=== PATIENT | male | born 1965 | race Caucasian/White ===

== ENCOUNTER 2023-07-16 03:43 | Observation (INO) | payer OTHER ==
--- NOTE | 2023-07-16 04:22 | ER ---
Nurse's Notes 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 TOOK 1 ZOFRAN AT 10P BUT STILL jj7 CAN'T KEEP ANYTHING DOWN. PT STATES THEY FEEL DEHYDRATED. Coronavirus screen: At this time, the client does not indicate any symptoms associated with coronavirus-19. Ebola Screen: No symptoms or risks identified at this time. Initial Sepsis Screen: Does the patient meet any 2 criteria? HR > 90 bpm. Yes Does the patient have a suspected source of infection? No. Patient's initial sepsis screen is negative. Risk Assessment: Do you want to hurt yourself or someone else? Patient reports no desire to harm self or others. Onset of symptoms was July 15, 2023 at 22:00. 03:50 Method Of Arrival: Ambulatory j7 03:50 Acuity: MORENA 3 jj7 Triage Assessment: 03:50 General: Appears in no apparent distress. uncomfortable, Behavior is calm, cooperative, jj7 appropriate for age. GI: Reports nausea, vomiting. Historical: - Allergies: 04:01 No Known Allergies; jj7 - PMHx: 04:01 SOFT PALATE CANCER; Chronic obstructive lung disease; jj7 - PSHx: 04:01 None; jj7 - Immunization history:: Adult Immunizations up to date, Client reports receiving the 2nd dose of the Covid vaccine, Flu vaccine is up to date. - Social history:: Smoking status: Patient/guardian denies using tobacco, Stopped _ months ago 6. Screenin:03 Abuse screen: Denies threats or abuse. Nutritional screening: No deficits noted. jj7 Tuberculosis screening: No symptoms or risk factors identified. 04:10 [facility] ED Fall Risk Assessment (Adult) History of falling in the last 3 months, jw7 including since admission No falls in past 3 months (0 pts) Confusion or Disorientation No (0 pts) Intoxicated or Sedated No (0 pts) Impaired Gait No (0 pts) Mobility Assist Device Used No (0 pt) Altered Elimination No (0 pt) Score/Fall Risk Level 0 - 2 = Low Risk Oriented to surroundings, Maintained a safe environment, Educated pt \T\ family on fall prevention, incl call for assistance when getting out of bed. Assessment: 04:00 General: Appears in no apparent distress. uncomfortable, Behavior is calm, cooperative. jw7 Pain: Denies pain. Neuro: Level of Consciousness is awake, alert, obeys commands, Oriented to person, place, time, situation. Cardiovascular: Heart tones S1 S2 present Capillary refill < 3 seconds Clubbing of nail beds is absent JVD is absent Patient's skin is warm and dry. Respiratory: Airway is patent Trachea midline Respiratory effort is even, labored, Respiratory pattern is regular, symmetrical, tachypnea Breath sounds are clear bilaterally. GI: Abdomen is flat, non-distended, Bowel sounds present X 4 quads. Abd is soft X 4 quads Reports nausea, vomiting. : No deficits noted. No signs and/or symptoms were reported regarding the genitourinary system. EENT: No deficits noted. No signs and/or symptoms were reported regarding the EENT system. Derm: Skin is intact, is healthy with good turgor, Skin is dry, Skin is flushed, Skin temperature is warm. Musculoskeletal: Circulation, motion, and sensation intact. Range of motion: intact in all extremities. 05:00 Reassessment: Patient appears in no apparent distress at this time. No changes from jw7 previously documented assessment. Patient and/or family updated on plan of care and expected duration. Pain level reassessed. Patient is alert, oriented x 3, equal unlabored respirations, skin warm/dry/pink. 06:00 Reassessment: Patient appears in no apparent distress at this time. No changes from jw7 previously documented assessment. Patient and/or family updated on plan of care and expected duration. Pain level reassessed. Patient is alert, oriented x 3, equal unlabored respirations, skin warm/dry/pink. Vital Signs: 03:50 BP 101 / 75; Pulse 130; Resp 17; Temp 98.4; Pulse Ox 86% on R/A; Weight 79.38 kg; jj7 Height 6 ft. 3 in. ; 05:00 BP 102 / 70; Pulse 115; Resp 21 S; Pulse Ox 95% on 3 lpm NC; jw7 06:00 BP 106 / 72; Pulse 126; Resp 33 S; Pulse Ox 91% on 2 lpm NC; jw7 03:50 Body Mass Index 21.87 (79.38 kg, 190.5 cm) j7 ED Course: 03:46 Patient arrived in ED. jj6 03:50 Arm band placed on right wrist. Patient placed in an exam room, on a stretcher, on jj7 diathermy equipment repairer, on pulse oximetry. EKG completed in triage. Results shown to MD. 03:52 Jef Smith MD is Attending Physician. [facility] 04:00 Triage completed. j7 04:00 Provided Education on: Use of Call Light. [facility] 04:03 Patient has correct armband on for positive identification. Bed in low position. Call j7 light in reach. Side rails up X 1. Adult w/ patient. Client placed on continuous cardiac and pulse oximetry monitoring. NIBP monitoring applied. cardiac monitor on. Pulse ox on. 04:03 Oxygen administration via nasal cannula \T\ 2L/min. jj7 04:17 John Page MD is Hospitalizing Provider. [facility] 04:22 XRAY Chest (1 view) In Process Unspecified. EDMS 04:28 Radha Allen, RN is Primary Nurse. jw7 04:40 Missed attempt(s): 20 gauge Bleeding controlled, band aid applied, catheter tip intact. oe 04:45 Missed attempt(s): 22 gauge Bleeding controlled, band aid applied, catheter tip intact. oe 04:50 Inserted saline lock: 20 gauge in right antecubital area, using aseptic technique. jj7 Blood collected. 05:01 Lipase Sent. jj7 05:01 Lactate w/ 2H reflex if indic. Sent. jj7 05:01 Blood Culture Adult (2) Sent. jj7 05:01 Basic Metabolic Panel Sent. jj7 05:01 CBC with Diff Sent. jj7 05:01 LFT's Sent. jj7 05:01 Magnesium Sent. jj7 05:01 NT PRO-BNP Sent. jj7 05:02 PT-INR Sent. jj7 05:02 Troponin HS Sent. jj7 06:19 No provider procedures requiring assistance completed. Patient admitted, IV remains in jw7 place. Administered Medications: 05:13 Drug: NS 0.9% IV 1000 ml IV at 1 bolus Per protocol; 1000 mL bolus Route: IV; Rate: 1 jw7 bolus; Site: right antecubital; 05:13 Drug: NS 0.9% IV 1000 ml IV at 1 bolus Per protocol; 1000 mL bolus Route: IV; Rate: 1 jw7 bolus; Site: right antecubital; 05:13 Drug: Piperacillin-Tazobactam IVPB 3.375 grams IVPB once over 60 mins; (mix in NS 100 jw7 mL) Route: IVPB; Infused Over: 60 mins; Site: right antecubital; 06:23 Follow up: Response: No adverse reaction; IV Status: Completed infusion; IV Intake: jw7 100ml 05:13 Drug: Ondansetron IVP 4 mg IVP once; over 2 minutes Route: IVP; Site: right antecubital;jw7 06:24 Follow up: Response: No adverse reaction; Marked relief of symptoms jw7 05:13 Drug: MethylPrednisoLONE IVP 125 mg IVP once Route: IVP; Site: right antecubital; jw7 06:24 Follow up: Response: No adverse reaction jw7 05:14 Drug: Levalbuterol Inhalation 2.5 mg Inhalation once Route: Inhalation; jw7 06:24 Follow up: Response: No adverse reaction; Marked relief of symptoms jw7 05:14 Drug: Ipratropium Inhalation Aerosol 0.5 mg Inhalation once Route: Inhalation; jw7 06:24 Follow up: Response: No adverse reaction; Marked relief of symptoms jw7 05:42 Drug: Famotidine IVP 20 mg IVP once; dilute with 10 mL 0.9% NaCl; give over 2 minutes jw7 Route: IVP; Site: right antecubital; 06:25 Follow up: Response: No adverse reaction; Marked relief of symptoms jw7 05:42 Drug: Levalbuterol Inhalation 1.25 mg Inhalation once Route: Inhalation; jw7 06:25 Follow up: Response: No adverse reaction; Marked relief of symptoms jw7 07:36 Drug: D5-1/2 NS IV 1000 ml IV at 150 ml/hr continuous Route: IV; Rate: 150 ml/hr; Site: kc6 right antecubital; 07:36 Drug: Magnesium Sulfate IVPB 1 grams IVPB once over 1 hrs Route: IVPB; Infused Over: 1 kc6 hrs; Site: right antecubital; Medication: 04:03 VIS not applicable for this client. jj7 Intake: 06:23 IV: 100ml; Total: 100ml. jw7 Outcome: 04:21 Decision to Hospitalize by Provider. rosy 06:19 Admitted to ER Hold. Please see [facility] for further documentation. jw7 06:19 Condition: stable 06:19 Instructed on the need for admit, Demonstrated understanding of instructions, 16:08 Patient left the ED. kc6 Signatures: Dispatcher [employer] EDMS Jef Smith MD MD cha Espinosa, Orlando oe Jeffries, Jennifer jj6 Radha Allen RN RN jw7 Amy Singh RN RN kc6 Jennifer Byrnes RN RN jj7
--- NOTE | 2023-07-16 04:22 | EDPHYS ---
Physician Documentation [facility] Name: Francisco Cardona Age: 58 yrs Sex: Male : 1965 Arrival Date: 07/16/2023 Time: 03:43 Bed 15 Private MD: ED Physician Jef Smith HPI: 07/15 04:10 This 58 yrs old Male presents to ER via Ambulatory with complaints of rosy Nausea/Vomiting, General Weakness, PT CURRENTLY ON CHEMO, POSSIBLE DEHYDRATION. 04:10 The patient presents to the emergency department with nausea, vomiting. Onset: The rosy symptoms/episode began/occurred 2 day(s) ago. Possible causes: unknown, chemo/ xrt. The symptoms are aggravated by food , The symptoms are alleviated by prescription meds. Associated signs and symptoms: Pertinent positives: nausea, vomiting. Severity of symptoms: At their worst the symptoms were moderate in the emergency department the symptoms are unchanged. The patient has experienced similar episodes in the past, several times. Historical: - Allergies: 04:01 No Known Allergies; jj7 - PMHx: 04:01 SOFT PALATE CANCER; Chronic obstructive lung disease; jj7 - PSHx: 04:01 None; jj7 - Immunization history:: Adult Immunizations up to date, Client reports receiving the 2nd dose of the Covid vaccine, Flu vaccine is up to date. - Social history:: Smoking status: Patient/guardian denies using tobacco, Stopped _ months ago 6. ROS: 04:12 Constitutional: Negative for fever, chills, and weight loss, Eyes: Negative for injury, rosy pain, redness, and discharge, ENT: Negative for injury, pain, and discharge, Neck: Negative for injury, pain, and swelling, Back: Negative for injury and pain, : Negative for injury, bleeding, discharge, and swelling, MS/Extremity: Negative for injury and deformity, Skin: Negative for injury, rash, and discoloration, Neuro: Negative for headache, weakness, numbness, tingling, and seizure, 04:12 Cardiovascular: Positive for palpitations, Negative for chest pain, 04:12 Respiratory: Positive for cough, shortness of breath, 04:12 Abdomen/GI: Negative for abdominal pain, nausea and vomiting, Exam: 04:12 Constitutional: This is a well developed, well nourished patient who is awake, alert, rosy and in no acute distress. Head/Face: Normocephalic, atraumatic. Eyes: Pupils equal round and reactive to light, extra-ocular motions intact. Lids and lashes normal. Conjunctiva and sclera are non-icteric and not injected. Cornea within normal limits. Periorbital areas with no swelling, redness, or edema. ENT: Nares patent. No nasal discharge, no septal abnormalities noted. Tympanic membranes are normal and external auditory canals are clear. Oropharynx with no redness, swelling, or masses, exudates, or evidence of obstruction, uvula midline. Mucous membranes moist. Neck: Trachea midline, no thyromegaly or masses palpated, and no cervical lymphadenopathy. Supple, full range of motion without nuchal rigidity, or vertebral point tenderness. No Meningismus. Chest/axilla: Normal chest wall appearance and motion. Nontender with no deformity. No lesions are appreciated. Abdomen/GI: Soft, non-tender, with normal bowel sounds. No distension or tympany. No guarding or rebound. No evidence of tenderness throughout. Back: No spinal tenderness. No costovertebral tenderness. Full range of motion. Male : Normal genitalia with no discharge or lesions. Skin: Warm, dry with normal turgor. Normal color with no rashes, no lesions, and no evidence of cellulitis. MS/ Extremity: Pulses equal, no cyanosis. Neurovascular intact. Full, normal range of motion. Neuro: Awake and alert, GCS 15, oriented to person, place, time, and situation. Cranial nerves II-XII grossly intact. Motor strength 5/5 in all extremities. Sensory grossly intact. Cerebellar exam normal. Normal gait. Psych: Awake, alert, with orientation to person, place and time. Behavior, mood, and affect are within normal limits. 04:12 Cardiovascular: Rate: tachycardic, actual rate is 122 bpm, Rhythm: regular, Pulses: Pulses are 4+ in bilateral radial, brachial, femoral, popliteal, posterior tibial and and dorsalis pedis arteries.. Heart sounds: normal, Edema: is not appreciated, JVD: is not appreciated, 04:12 ECG was reviewed by the Attending Physician. Vital Signs: 03:50 BP 101 / 75; Pulse 130; Resp 17; Temp 98.4; Pulse Ox 86% on R/A; Weight 79.38 kg; jj7 Height 6 ft. 3 in. ; 05:00 BP 102 / 70; Pulse 115; Resp 21 S; Pulse Ox 95% on 3 lpm NC; [facility] 06:00 BP 106 / 72; Pulse 126; Resp 33 S; Pulse Ox 91% on 2 lpm NC; [facility] 03:50 Body Mass Index 21.87 (79.38 kg, 190.5 cm) [facility] MDM: 03:52 Patient medically screened. rosy 05:55 Antibiotic administration: zosyn, rocephin. Differential diagnosis: Anxiety Reaction rosy asthma, Bronchitis CHF exacerbation, Chronic Obstructive Pulmonary Disease Nonspecific abd pain, gastritis, pancreatitis, appendicitis, viral gastroenteritis, gastroenteritis, pneumonia, Pneumothorax Psychogenic pulmonary edema, Pulmonary Embolism. Immunization status: Influenza vaccine:. Data reviewed: vital signs, nurses notes, lab test result(s), EKG, radiologic studies, plain films. Consideration of Admission/Observation Patient was admitted/placed on observation. Escalation of care including admission/observation considered. I considered the following discharge prescriptions or medication management in the emergency department Medications were administered in the Emergency Department. See MAR. Independent interpretation of the following test(s) in the Emergency Department EKG: See my EKG interpretation above. Test considered but Not performed: CT: no ct chest. Historians other than the Patient: Family Member: family well informed. Care significantly affected by the following chronic conditions: Chronic Obstructive Pulmonary Disease, Cancer. Counseling: I had a detailed discussion with the patient and/or guardian regarding the historical points, exam findings, and any diagnostic results supporting the discharge/admit diagnosis, the presence of at least one elevated blood pressure reading (>120/80) during this emergency department visit, lab results, radiology results, the need for further work-up and treatment in the hospital. 07/15 04:08 Order name: Basic Metabolic Panel; Complete Time: 05:39 rosy 07/15 04:08 Order name: CBC with Diff rosy 07/15 04:08 Order name: LFT's; Complete Time: 05:39 rosy 07/15 04:08 Order name: Magnesium; Complete Time: 05:39 rosy 07/15 04:08 Order name: NT PRO-BNP; Complete Time: 05:39 rosy 07/15 04:08 Order name: PT-INR; Complete Time: 05:25 rosy 07/15 04:08 Order name: Troponin HS; Complete Time: 05:39 [facility] 07/15 04:08 Order name: Blood Culture Adult (2) [facility] 07/15 04:08 Order name: Lactate w/ 2H reflex if indic.; Complete Time: 05:55 [facility] 07/15 04:08 Order name: Urinalysis w/ reflexes [facility] 07/15 04:08 Order name: Lipase; Complete Time: 05:39 [facility] 07/15 05:23 Order name: Urinalysis w/ reflexes [facility] 07/15 08:27 Order name: CBC Smear Scan [facility] 07/15 15:54 Order name: Lactate Sepsis 2 HR Follow-up [facility] 07/15 04:08 Order name: XRAY Chest (1 view) [facility] 07/15 04:08 Order name: EKG; Complete Time: 04:09 [facility] 07/15 04:08 Order name: Cardiac monitoring; Complete Time: 04:09 [facility] 07/15 04:08 Order name: EKG - Nurse/Tech; Complete Time: 04:09 [facility] 07/15 04:08 Order name: IV Saline Lock; Complete Time: 05:01 [facility] 07/15 04:08 Order name: Labs collected and sent; Complete Time: 05:01 [facility] 07/15 04:08 Order name: O2 Per Protocol; Complete Time: 04:40 [facility] 07/15 04:08 Order name: O2 Sat Monitoring; Complete Time: 04:40 [facility] EC:12 Rate is 122 beats/min. Rhythm is regular. QRS Calder is Normal. DC interval is normal. [facility] QRS interval is normal. QT interval is normal. No Q waves. T waves are Normal. No ST changes noted. Clinical impression: Sinus tachycardia and No evidence of ischemia. Interpreted by me. Reviewed by me. Administered Medications: 05:13 Drug: NS 0.9% IV 1000 ml IV at 1 bolus Per protocol; 1000 mL bolus Route: IV; Rate: 1 jw7 bolus; Site: right antecubital; 05:13 Drug: NS 0.9% IV 1000 ml IV at 1 bolus Per protocol; 1000 mL bolus Route: IV; Rate: 1 jw7 bolus; Site: right antecubital; 05:13 Drug: Piperacillin-Tazobactam IVPB 3.375 grams IVPB once over 60 mins; (mix in NS 100 jw7 mL) Route: IVPB; Infused Over: 60 mins; Site: right antecubital; 06:23 Follow up: Response: No adverse reaction; IV Status: Completed infusion; IV Intake: jw7 100ml 05:13 Drug: Ondansetron IVP 4 mg IVP once; over 2 minutes Route: IVP; Site: right antecubital;jw7 06:24 Follow up: Response: No adverse reaction; Marked relief of symptoms jw7 05:13 Drug: MethylPrednisoLONE IVP 125 mg IVP once Route: IVP; Site: right antecubital; jw7 06:24 Follow up: Response: No adverse reaction jw7 05:14 Drug: Levalbuterol Inhalation 2.5 mg Inhalation once Route: Inhalation; jw7 06:24 Follow up: Response: No adverse reaction; Marked relief of symptoms jw7 05:14 Drug: Ipratropium Inhalation Aerosol 0.5 mg Inhalation once Route: Inhalation; jw7 06:24 Follow up: Response: No adverse reaction; Marked relief of symptoms jw7 05:42 Drug: Famotidine IVP 20 mg IVP once; dilute with 10 mL 0.9% NaCl; give over 2 minutes jw7 Route: IVP; Site: right antecubital; 06:25 Follow up: Response: No adverse reaction; Marked relief of symptoms jw7 05:42 Drug: Levalbuterol Inhalation 1.25 mg Inhalation once Route: Inhalation; jw7 06:25 Follow up: Response: No adverse reaction; Marked relief of symptoms jw7 07:36 Drug: D5-1/2 NS IV 1000 ml IV at 150 ml/hr continuous Route: IV; Rate: 150 ml/hr; Site: kc6 right antecubital; 07:36 Drug: Magnesium Sulfate IVPB 1 grams IVPB once over 1 hrs Route: IVPB; Infused Over: 1 kc6 hrs; Site: right antecubital; Disposition Summary: 07/16/23 04:21 Hospitalization Ordered Notes: Hospitalization Status: Observation rosy Provider: John Page cha Condition: Stable rosy Problem: new rosy Symptoms: have improved rosy Bed/Room Type: Standard rosy Location: Telemetry/MedSurg (observation)(07/16/23 15:01) janis Room Assignment: 426(07/16/23 15:01) janis Diagnosis - COPD/ Chronic obstructive pulmonary disease with (acute) exacerbation rosy - Dehydration rosy - Vomiting rosy - Hypoxemia rosy - 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, face and neck - on rosy chem/xrt - Neutropenia, unspecified - anc 1530 rosy - Anemia, unspecified rosy Forms: - Medication Reconciliation Form rosy - SBAR form rosy - Leadership Thank You Letter rosy Signatures: Dispatcher [employer] Jef Waite MD MD cha Garcia, Cindy RN RN Krishna Cedeño RN RN ja1 Radha Allen RN RN jw7 Amy Singh RN RN kc6 Jennifer Byrnes RN RN jj7 Corrections: (The following items were deleted from the chart) 05:41 04:21 Telemetry/MedSurg (observation) [facility] cg 05:41 04:21 rosy cg 15:01 05:41 [facility] ER HOLD [facility] 15:01 05:41 ERHOLD- [facility]
[2023-07-16] MEDS ORDERED: ONDANSETRON 4 MG/2 ML VIAL ONE (04:48)
[2023-07-16] MEDS ORDERED: LEVALBUTEROL 1.25 MG/3 ML NEB ONE ×2 (04:48→05:31)
[2023-07-16] MEDS ORDERED: NA CHLORIDE 0.9% 100 ML ONE ×2 (04:48→08:35)
[2023-07-16] MEDS ORDERED: IPRATROPIUM BROM 0.5MG/2.5ML ONE (04:48)
[2023-07-16] MEDS ORDERED: METHYLPREDNISOLONE 125 MG INJ ONE (04:48)
[2023-07-16] MEDS ORDERED: PIPERACIL/TAZO 3.375 GM VIAL IV ONE (04:48)
[2023-07-16] MEDS ORDERED: NA CHLORIDE 0.9% 2,000 ML ONE (04:49)
[2023-07-16] MEDS ORDERED: ACETAMINOPHEN 500 MG TAB PO PRN (05:17)
[2023-07-16] MEDS ORDERED: ONDANSETRON 4 MG/2 ML VIAL IV PRN (05:17)
[2023-07-16 05:18] LABS: Absolute Lymphocytes (CBC) 0.1 K/uL (0.7-4.9); Absolute Monocytes 0.1 K/uL (0.1-1.3); Absolute Neutrophil 1.6 K/uL (1.8-8.0); Basophils % 0.1 % (0-1.3); Eosinophils % 0.1 % (0-4.4); Hemoglobin 12.1 g/dL (13.6-17.9); MCH 30.8 pg (27.0-35.0); MCHC 34.5 g/dL (32.0-36.0); MCV 89.1 fL (80-100); MPV 7.1 fL (7.6-11.3); Monocytes % 5.5 % (3.3-12.3); Neutrophils % 90.3 % (41.7-73.7); Nucleated Red Blood Cells % 0.3 % (0-0); Platelets 191 thou/uL (152-406); RBC Red Blood Cell Count 3.93 M/uL (4.33-5.43)
[2023-07-16 05:20] LABS: PT Prothrombin Time 13.6 SECONDS (9.5-12.5); Protime INR 1.24
[2023-07-16] MEDS ORDERED: ALBUTEROL 2.5 MG/3 ML NEB SOL NEB PRN (05:22)
[2023-07-16] MEDS ORDERED: IPRATROPIUM BROM 0.5MG/2.5ML NEB PRN (05:23)
--- NOTE | 2023-07-16 05:23 | P.HP ---
Certification for Inpatient Patient admitted to: Inpatient With expected LOS: >2 Midnights Practitioner: I am a practitioner with admitting privileges, knowledge of patient current condition, hospital course, and medical plan of care. Services: Services provided to patient in accordance with Admission requirements found in Title 42 Section 412.3 of the Code of Federal Regulations Patient History Date of Service: 07/16/23 Reason for admission: Pneumonia, sepsis. 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 He was found to have significant issues with neutropenia, elevated lactic acid and concerns for COPD exacerbation. He was given breathing treatment, IV fluid for sepsis management and IV antibiotic therapy and was admitted for inpatient care. Allergies No Known Allergies Allergy (Verified 06/03/23 09:45) Review of Systems General: Weakness, Malaise Eyes: Unremarkable ENT: Unremarkable Respiratory: Shortness of Breath, As per HPI Cardiovascular: As per HPI Gastrointestinal: Unremarkable Genitourinary: Unremarkable Musculoskeletal: Unremarkable Integumentary: Unremarkable Neurological: Unremarkable Lymphatics: Unremarkable Physical Examination - Physical Exam General: Alert, Oriented x3 HEENT: Atraumatic Neck: Supple Respiratory: Diminished Cardiovascular: Regular rate/rhythm, Normal S1 S2 Gastrointestinal: Soft and benign Musculoskeletal: No swelling Neurological: Normal speech, Normal strength at 5/5 x4 extr - Studies Laboratory Data (last 24 hrs) 07/16/23 04:50 PT 13.6 H INR 1.24 Assessment and Plan - Plan Sepsis: Present on admission and deemed secondary to underlying pneumonia issues. Lactic acid is elevated at 3.5. IV fluid given and antibiotic started. Will adjust antibiotic therapy based on cultures Continue to monitor lactic acid reflexively. Neutropenia: Patient is on chemotherapy and x-ray therapy. Will start Neupogen for neutropenia and monitor daily white cell count. COPD exacerbation: Deemed infectious as per exacerbation secondary to pneumonia. We will continue steroid therapy and breathing treatment. History of head and neck cancer: We will continue therapy as per oncologist. Hyponatremia: Sodium is slightly low at 131. Will continue IV fluid for repletion and follow levels on daily labs. Prophylaxis: Lovenox for DVT prophylaxis. CODE STATUS: Full code. Disposition: We will treat his multiple medical issues and he will be discharged when deemed clinically stable. - Advance Directives Does patient have a Living Will: No Does patient have a Durable POA for Healthcare: No
[2023-07-16] MEDS ORDERED: D5 0.45 NS 1,000 ML IV ONE (05:31)
[2023-07-16] MEDS ORDERED: FAMOTIDINE 20 MG/2 ML VIAL IV ONE (05:31)
[2023-07-16 05:35] LABS: Albumin 2.7 g/dL (3.4-5.0); Albumin/Globulin Ratio 0.6 (1.1-1.8); Anion Gap 13.3 mEq/L (5.0-15.0); Bilirubin Direct 0.3 mg/dL (0-0.2); Bilirubin Indirect, Calculated 0.6 mg/dL (0.2-0.8); Bilirubin Total 0.9 mg/dL (0.2-1.0); Globulin 4.8 g/dL (2.3-3.5); Magnesium 1.7 mg/dL (1.6-2.4); Potassium 4.3 mEq/L (3.5-5.1); Protein, Total 7.5 g/dL (6.4-8.2); Troponin High Sensitivity 7.6 pg/mL (<58.9)
[2023-07-16] MEDS: METHYLPREDNISOLONE 40 MG INJ IV SCH (06:00)
[2023-07-16 06:31] VITALS: BMI 21.9
[2023-07-16 06:59] LABS: Specific Gravity 1.026 (1.005-1.030); Sqamous Epithelial None Seen /HPF (None Seen); Urine Bacteria None Seen /HPF (<20); Urine Bilirubin NEGATIVE (Negative); Urine Blood Negative (Negative); Urine Clarity Turbid (Clear); Urine Color Light-Orange (Yellow); Urine Culture Reflex Order NOT NEEDED; Urine Glucose NEGATIVE (Negative); Urine Ketones NEGATIVE (Negative); Urine Microscopic Reflex YN ORDER UMIC; Urine Nitrite NEGATIVE (Negative); Urine Protein 1+ (Negative); Urine RBC <5 /HPF (None Seen); Urine Urobilinogen Normal (Normal); Urine WBC <5 /HPF (<5); Urine pH 5.5 (5.0-7.0)
[2023-07-16] MEDS ORDERED: MAGNESIUM SULFATE 1 gm IVPB 1 GM/100 ML BAG IV ONE (07:20)
[2023-07-16] MEDS: Levofloxacin 750mg IV 750 MG/150 ML BAG IV SCH (08:00)
[2023-07-16 08:26] LABS: Blood Morphology Comment NOT SEEN (NOT SEEN); Platelet Estimate ADEQ; Toxic Granulation PRESENT; White Blood Cell Scan OK (OK)
[2023-07-16] MEDS ORDERED: Levofloxacin 750mg IV 750 MG/150 ML BAG IV ONE (08:35)
[2023-07-16] MEDS ORDERED: ENOXAPARIN 40 MG/0.4 ML SQ ONE (08:35)
[2023-07-16] MEDS ORDERED: CEFEPIME 1 GM/VIAL ONE (08:36)
[2023-07-16] MEDS: CEFEPIME 1 GM in NA CHLORIDE 0.9% 100 ML IV SCH (08:50)
[2023-07-16] MEDS: ENOXAPARIN 40 MG/0.4 ML SQ SCH (08:50)
[2023-07-16] MEDS: TBO-FILGRASTIM 480 MCG/0.8 ML SYR SQ SCH (12:54)
--- NOTE | 2023-07-16 14:06 | EKG ---
Test Date: 2023-07-16 Test Time: 03:52:23 Care Analyst: JOVITA MEASUREMENT RESULTS: Intervals: Rate: 122 DC: 130 QRSD: 106 QT: 314 QTc: 447 [place]: P: 79 DC: 130 QRS: 82 T: 83 INTERPRETIVE STATEMENTS: Sinus tachycardia Right atrial enlargement Borderline ECG No previous ECG available for comparison Electronically Signed On 07-16-23 14:04:45 CDT by Dionicio Quintanilla
--- NOTE | 2023-07-16 17:21 | RAD REPORT ---
EXAM DESCRIPTION: RAD - Chest Single View - 07/16/2023 4:20 am CLINICAL HISTORY: The patient is 58 years old and is Male; COUGH TECHNIQUE: Frontal view of the chest. COMPARISON: No relevant prior studies available. FINDINGS: Lungs: Unremarkable. No consolidation. Pleural space: Unremarkable. No pneumothorax. Heart: Unremarkable. Mediastinum: Unremarkable. Normal mediastinal contour. Bones/joints: No acute findings. IMPRESSION: No acute findings in the chest. Electronically signed by: Erik Barber MD 07/16/2023 05:05 AM CDT Due to temporary technical issues with the PACS/Fluency reporting system, reports are being signed by the in house radiologists without review as a courtesy to insure prompt reporting. The interpreting radiologist is fully responsible for the content of the report.
[2023-07-16] MEDS: HYDROCODONE/APAP 10/325 TAB PO PRN (17:58)
--- NOTE | 2023-07-16 20:34 | P.PN ---
Date of Service: 07/16/23 Pt seen and examined. Pt is 58-year-old male with past medical history of COPD and oropharyngeal cancer s/p chemoradiation therapy who presented with SOB, nausea, vomiting and weakness. On admission, lab studies showed neutropenia, elevated lactic acid, dehydration, and concerns for COPD exacerbation. He was given breathing treatment, IV fluid for sepsis management and IV antibiotic therapy and admitted for inpatient care. A/P: Severe sepsis: Likely due to aspiration pneumonia due to vomiting and oropharyngeal cancer. Lactate is 3.5. Will continue Iv cefepime and IVF. trend lactate. Leukopenia: WBC is 1.7, Likely due to chemoradiation. Will continue cefepime and trend WBC. COPD exacerbation: Continue steroid therapy, prn oxygen and duoneb. History of head and neck cancer: We will continue therapy as per oncologist. Elevated BNP: BNP 896. Will check Echo. Hyponatremia: Na is 131. Will continue IV fluid for repletion and follow levels on daily labs. DVT prophylaxis: lovenox CODE STATUS: Full code. Disposition: Pending hospital course
[2023-07-17] MEDS: NA CHLORIDE 0.9% 1,000 ML IV SCH ×2 (08:30→10:00)
--- NOTE | 2023-07-17 09:48 | P.PN ---
Subjective Date of Service: 07/17/23 Chief Complaint: Pneumonia, sepsis. Pt is resting comfortably in bed. He complains of drymouth and dysphagia. Waiting for Speech therapist to evaluate him. No other complaints. Review of Systems General: Unremarkable Eyes: Unremarkable ENT: Other (dry mouth and dysphagia) Respiratory: Unremarkable Cardiovascular: Unremarkable Gastrointestinal: Unremarkable Genitourinary: Unremarkable Musculoskeletal: Unremarkable Integumentary: Unremarkable Neurological: Unremarkable Lymphatics: Unremarkable Physical Examination - Vital Signs Temperature: 97.2 F Blood Pressure: 119/73 Pulse: 79 Respirations: 19 Pulse Ox (%): 95 - Physical Exam General: Alert, In no apparent distress, Oriented x3 HEENT: Atraumatic, Normocephalic, PERRLA Neck: Supple, 2+ carotid pulse no bruit Respiratory: Clear to auscultation bilaterally, Normal air movement Cardiovascular: No edema, Normal pulses, Regular rate/rhythm, Normal S1 S2 Capillary refill: <2 Seconds Gastrointestinal: Normal bowel sounds, Soft and benign, Non-distended Musculoskeletal: No clubbing, No swelling Integumentary: No rashes, No breakdown, No significant lesion Neurological: Normal gait, Normal speech, Normal strength at 5/5 x4 extr Lymphatics: No axilla or inguinal lymphadenopathy Assessment And Plan - Plan Severe sepsis: Likely due to aspiration pneumonia due to vomiting and oropharyngeal cancer. Lactate is 1.5 <- 3.5. Will continue iv cefepime and IVF. trend lactate. Will f/u CXR Leukopenia: WBC is 1.7, Likely due to chemoradiation. Will continue cefepime, filgrastim and trend WBC. COPD exacerbation: Continue steroid therapy, cefepime, prn oxygen and duoneb. History of head and neck cancer: We will continue therapy as per oncologist. Elevated BNP: BNP 896. Will check Echo. Hyponatremia: Na is 131. Will continue IV fluid for repletion and follow levels on daily labs. DVT prophylaxis: lovenox Code: Full code. Disposition: Pending hospital course
[2023-07-17 10:28] LABS: Absolute Neutrophil 6.5 K/uL (1.8-8.0); Basophils % 0.4 % (0-1.3); Hematocrit 29.7 % (39.6-49.0); Hemoglobin 10.4 g/dL (13.6-17.9); Lymphocytes % 0.7 % (15.3-44.8); MCH 30.9 pg (27.0-35.0); MCHC 34.8 g/dL (32.0-36.0); MCV 88.7 fL (80-100); MPV 6.8 fL (7.6-11.3); Monocytes % 0.3 % (3.3-12.3); Neutrophils % 98.6 % (41.7-73.7); Platelets 151 thou/uL (152-406); RBC Red Blood Cell Count 3.35 M/uL (4.33-5.43); Red Cell Distribution Width 15.4 % (12.1-15.2)
[2023-07-17 10:40] LABS: Anion Gap 8.8 mEq/L (5.0-15.0); Potassium 3.8 mEq/L (3.5-5.1)
[2023-07-18 02:45] LABS: Specific Gravity 1.017 (1.005-1.030); Urine Bilirubin NEGATIVE (Negative); Urine Blood Negative (Negative); Urine Clarity Clear (Clear); Urine Color Light-Yellow (Yellow); Urine Glucose NEGATIVE (Negative); Urine Ketones NEGATIVE (Negative); Urine Microscopic Reflex YN NO UMIC; Urine Nitrite NEGATIVE (Negative); Urine Protein NEGATIVE (Negative); Urine Urobilinogen Normal (Normal); Urine pH 5.5 (5.0-7.0)
[2023-07-18] MEDS: DOCUSATE NA 100 MG CAP PO SCH (08:14)
[2023-07-18 10:59] VITALS: O2SAT 90
--- NOTE | 2023-07-18 11:52 | P.DS ---
Admission Date: 07/16/23 Discharge Date: 07/18/23 Disposition: ROUTINE DISCHARGE Discharge Condition: GOOD Reason for Admission: Pneumonia, sepsis. Brief History of Present Illness: 58-year-old female patient with medical history significant for COPD, history of oropharyngeal cancer with subsequent chemotherapy and x-ray therapy who came to the ED with complaint of worsening shortness of breath. He was found to have significant issues with neutropenia, elevated lactic acid and concerns for COPD exacerbation. He was given breathing treatment, IV fluid for sepsis management and IV antibiotic therapy and was admitted for inpatient care. Hospital Course: Pt is a 58-year-old female with past medical history of COPD and oropharyngeal cancer s/p chemoradiation who presented with worsening shortness of breath. He was found to have leukopenia, elevated lactic acid and concerns for COPD exacerbation. Pt complained of difficulty swallowing. We kept him NPO and consulted Speech therapist for evaluation. FUNDS TRANSFER CLERK recommended full liquid diet. Pt will follo wup with GI in clinic. Pt later tolerated regular food. The leukopenia resolved with iv filgrastrim and cefepime. We later discharged him with cefdinir 300mg po BID for 5 days. Lactic acidosis resolved with gentle hydration. We continued steroid therapy, cefepime, prn oxygen and duoneb for acute COPD exacerbation. Pt had elevated BNP and we ordered Echo but pt declined echocardiogram. Hyponatremia due to hypovolemia improved with gentle hydration. We continued home med for other chronic medical problems. Pt was in NAD prior to discharge. Vital Signs/Physical Exam: Temp Pulse Resp BP Pulse Ox 97.8 F 80 18 138/82 92 07/18/23 08:00 07/18/23 08:00 07/18/23 10:53 07/18/23 08:00 07/18/23 10:53 Laboratory Data at Discharge: WBC 6.60 thou/uL (4.3-10.9) 07/17/23 10:16 Hgb 10.4 g/dL (13.6-17.9) L 07/17/23 10:16 Hct 29.7 % (39.6-49.0) L 07/17/23 10:16 Plt Count 151 thou/uL (152-406) L 07/17/23 10:16 PT 13.6 SECONDS (9.5-12.5) H 07/16/23 04:50 INR 1.24 07/16/23 04:50 Sodium 132 mEq/L (136-145) L 07/17/23 10:16 Potassium 3.8 mEq/L (3.5-5.1) 07/17/23 10:16 BUN 21 mg/dL (7-18) H 07/17/23 10:16 Creatinine 0.63 mg/dL (0.70-1.30) L 07/17/23 10:16 Glucose 134 mg/dL (74-106) H 07/17/23 10:16 Magnesium 1.7 mg/dL (1.6-2.4) 07/16/23 04:50 Total Bilirubin 0.9 mg/dL (0.2-1.0) 07/16/23 04:50 AST 11 U/L (15-37) L 07/16/23 04:50 ALT 28 U/L (16-61) 07/16/23 04:50 Alkaline Phosphatase 50 U/L (45-117) 07/16/23 04:50 Lipase 7 U/L (13-75) L 07/16/23 04:50 Home Medications: Omeprazole 20 mg PO DAILY 07/17/23 Rosuvastatin [Crestor*] 10 mg PO BEDTIME 07/17/23 Cefdinir [Cefdinir*] 300 mg PO BID 5 Days #10 cap 07/18/23 New Medications: Cefdinir [Cefdinir*] 300 mg PO BID 5 Days #10 cap Physician Discharge Instructions: Continue ad pia activity. Take cefdinir 300mg po BID for 5 more days. Continue other home meds. Follow up with PCP and Oncology within 1 week. Diet: AHA Activity: Ad pia Followup: JUAN MANUEL ZAMBRANO [Primary Care Provider] -
[2023-07-18 12:23] VITALS: BP 115/68; TEMP 98.7
[2023-07-18] MEDS ORDERED: CEFDINIR 300 MG CAP PO SCH (21:00)
== END 2023-07-18 13:26 | disposition home or self-care (01) ==
LOC: ER 03:43 → ERHOLD 05:17 → 4TH 15:08
PROVIDERS: ADMIT Internal Medicine Hematology & Oncology; ATTEND Hospitalist
DX: J18.9 Pneumonia, unspecified organism (principal); R65.20 Severe sepsis without septic shock; D70.9 Neutropenia, unspecified; J44.1 Chronic obstructive pulmonary disease with (acute) exacerbation; E87.1 Hypo-osmolality and hyponatremia; E86.0 Dehydration; R79.89 Other specified abnormal findings of blood chemistry; R13.10 Dysphagia, unspecified; R68.2 Dry mouth, unspecified; Z85.818 Personal history of malignant neoplasm of other sites of lip, oral cavity, and pharynx
CPT/HCPCS: 96365; 93005; 87040 ×2; 85025 ×2; 81001; 80048 ×2; 36415 ×2; 83735; 85610; 80076; 83605 ×2; 81003; 84484; 83690; 83880; 71045; 92610; 96375; 99285; J3475; J1447 ×3; J7614 ×2; J2543; J7644; J1650 ×3; J2930; J2405; G0378 ×6; J7799; J7030 ×4; J0692 ×5; J2920 ×4; J7613